=== PATIENT | male | born 1970 | race Caucasian/White ===

== ENCOUNTER 2020-05-19 23:39 | Emergency (ER) | payer SELFPAY ==
[~2020-05-19] VITALS: Ht 172.7 cm; Wt 79.4 kg
--- NOTE | 2020-05-19 23:50 | NUR ---
2 [employer] officers at bedside interviewing patient. Addendum: 05/20/20 at 0015 by RAYMOND SCOTT SCHILLING#[id number] & RONY #[id number] - [id number] [place]
[2020-05-20] MEDS ORDERED: ONDANSETRON ODT 4 MG TAB.RAPDIS SL ONE
[2020-05-20] MEDS ORDERED: HYDROCODONE/APAP 5-325MG TABLET ONE ×2 (00:02→00:50)
[2020-05-20] MEDS ORDERED: ONDANSETRON ODT 4 MG TAB.RAPDIS ONE (00:02)
[2020-05-20] MEDS ORDERED: CEFTRIAXONE 1 G VIAL IM ONE (00:45)
[2020-05-20] MEDS ORDERED: HYDROCODONE/APAP 5-325MG TABLET PO ONE ×2 (00:45)
[2020-05-20] MEDS ORDERED: CEFTRIAXONE 1 G VIAL ONE (00:50)
[2020-05-20] MEDS ORDERED: LIDOCAINE HCL 1% 20 ML VIAL ONE (00:50)
--- NOTE | 2020-05-20 01:11 | NUR ---
Patient given written and verbal discharge instructions. Patient verbalizes understanding of instructions. Patient is ambulatory with steady gait. Refuses offer of [facility] placement. Patient given list of available shelters in surrounding area.
[2020-05-20 01:14] VITALS: BP 147/88
== END 2020-05-20 01:15 | disposition home or self-care (01) ==
LOC: ER 23:47
DX: S02.31XA Fracture of orbital floor, right side, initial encounter for closed fracture (principal); S02.40CA Maxillary fracture, right side, initial encounter for closed fracture; Y04.0XXA Assault by unarmed brawl or fight, initial encounter; Y92.89 Other specified places as the place of occurrence of the external cause; Y99.8 Other external cause status; Z59.0 Homelessness; F17.200 Nicotine dependence, unspecified, uncomplicated
CPT/HCPCS: 70486; 93005; 96372; 99284; J0696; J3490; Q0162